=== PATIENT | male | born 2000 | race Two or more races ===

== ENCOUNTER 2022-06-21 13:35 | Emergency (ER) | payer OTHER ==
[~2022-06-21] VITALS: Ht 170.2 cm; Wt 64.4 kg
[2022-06-21] MEDS ORDERED: PEPCID AC20 MG PO (17:43)
[2022-06-21] MEDS ORDERED: CARAFATE1 GM PO (17:43)
== END 2022-06-21 17:52 | disposition home or self-care (01) ==
LOC: ER 13:35
DX: K29.70 Gastritis, unspecified, without bleeding (principal)